=== PATIENT | male | born 1955 | race Caucasian/White ===

== ENCOUNTER → 2019-06-29 | Outpatient (CLI) | payer BC ==
[~2019-06-29] MED LIST: ASPIRIN 81M81 MG/TA2 PO; EFFIENT10 MG PO; FLOMAX 0.40.4 MG/CAP PO; HYDROCODONE/APAP; NORCO 325 MG-7.1 TAB PO; PRAVACHOL10 MG PO; ZESTRIL 5MG5 MG PO
[2019-06-29 08:43] LABS: ARTERIAL BLD GAS O2 SATURATION 96.1 % (92-100); ARTERIAL BLOOD GAS HCO3 20.9 meq/L (22-26); ARTERIAL BLOOD GAS PCO2 34.5 mmHg (35-45)
== END ==
LOC: COL.PUL 08:00
PROVIDERS: Emergency Medicine
DX: F17.200 Nicotine dependence, unspecified, uncomplicated (principal); R06.02 Shortness of breath